=== PATIENT | female | born 1990 | race Caucasian/White ===

== ENCOUNTER → 2016-08-23 | Outpatient (CLI) | payer BC | END | disposition home or self-care (01) | LOC: MW.CHOBGYN 15:20 | PROVIDERS: ATTEND Advanced Practice Midwife | DX: O10.919 Unspecified pre-existing hypertension complicating pregnancy, unspecified trimester (principal); Z3A.00 Weeks of gestation of pregnancy not specified | CPT/HCPCS: 36415; 80305; 81003; 82570; 84156; 86592; 86762; 86803; 86850; 86900; 86901; 87086; 87340; 87389 ==

== ENCOUNTER 2016-09-13 13:24 | Outpatient (CLI) | payer BC | END 2016-09-13 13:52 | disposition home or self-care (01) | LOC: MW.OBCHECK 13:24 → MW.OB 13:28 → MW.OBCHECK 13:52 | PROVIDERS: ATTEND Obstetrics & Gynecology | DX: O47.03 False labor before 37 completed weeks of gestation, third trimester (principal); Z3A.33 33 weeks gestation of pregnancy | CPT/HCPCS: 59025 ==

== ENCOUNTER 2016-09-20 13:32 | Outpatient (CLI) | payer BC | END 2016-09-20 13:46 | disposition home or self-care (01) | LOC: MW.OBCHECK 13:32 → MW.OB 13:33 → MW.OBCHECK 13:46 | PROVIDERS: ATTEND Obstetrics & Gynecology | DX: Z36 Encounter for antenatal screening of mother (principal) | CPT/HCPCS: 59025 ==

== ENCOUNTER → 2016-09-23 | Outpatient (CLI) | payer BC | END | disposition home or self-care (01) | LOC: MW.CHOBGYN 14:18 | PROVIDERS: ATTEND Advanced Practice Midwife | DX: Z34.90 Encounter for supervision of normal pregnancy, unspecified, unspecified trimester (principal) | CPT/HCPCS: 87081 ==

== ENCOUNTER 2016-09-27 13:06 | Outpatient (CLI) | payer BC | END 2016-09-27 14:10 | disposition home or self-care (01) | LOC: MW.OBCHECK 13:06 | PROVIDERS: ATTEND Obstetrics & Gynecology | DX: Z34.93 Encounter for supervision of normal pregnancy, unspecified, third trimester (principal) | CPT/HCPCS: 59025 ==

== ENCOUNTER 2016-10-04 13:34 | Outpatient (CLI) | payer BC | END 2016-10-04 13:50 | disposition home or self-care (01) | LOC: MW.OBCHECK 13:34 → MW.OB 13:36 → MW.OBCHECK 13:50 | PROVIDERS: ATTEND Obstetrics & Gynecology | DX: O16.3 Unspecified maternal hypertension, third trimester (principal); O47.03 False labor before 37 completed weeks of gestation, third trimester; Z3A.36 36 weeks gestation of pregnancy | CPT/HCPCS: 59025 ==

== ENCOUNTER 2016-10-11 13:01 | Outpatient (CLI) | payer BC | END 2016-10-11 14:30 | disposition home or self-care (01) | LOC: MW.OBCHECK 13:01 → MW.OB 13:02 → MW.OBCHECK 14:30 | PROVIDERS: ATTEND Advanced Practice Midwife | DX: Z34.93 Encounter for supervision of normal pregnancy, unspecified, third trimester (principal) | CPT/HCPCS: 59025 ==

== ENCOUNTER 2016-10-17 10:48 | Outpatient (CLI) | payer BC | END 2016-10-17 12:10 | disposition home or self-care (01) | LOC: MW.OBCHECK 10:48 → MW.OB 10:49 → MW.OBCHECK 12:10 | PROVIDERS: ATTEND Obstetrics & Gynecology | DX: O47.03 False labor before 37 completed weeks of gestation, third trimester (principal) | CPT/HCPCS: 59025 ==

== ENCOUNTER 2016-10-17 23:23 | Inpatient (IN) | payer BC ==
[2016-10-18] MEDS ORDERED: Lidocaine 1% 50 ML MDV INJECT PRN (01:10)
[2016-10-18] MEDS ORDERED: Nalbuphine 10 MG/1 ML Vial IVPUSH PRN (01:10)
[2016-10-18] MEDS ORDERED: Water For Irrigation,Sterile 1,000 ML Container IRR PRN (01:10)
[2016-10-18] MEDS ORDERED: Methylergonovine 0.2 MG/1 ML Amp IM PRN (01:10)
[2016-10-18] MEDS ORDERED: Butorphanol 1 MG/ML SDV IVPUSH PRN (01:10)
[2016-10-18] MEDS ORDERED: Sodium Chloride 0.9% 2.5 ML Syringe FLUSH PRN (01:10)
[2016-10-18] MEDS ORDERED: Misoprostol 200 MCG Tab PO PRN (01:10)
[2016-10-18] MEDS ORDERED: Sodium Chloride 0.9% 10 ML Syringe FLUSH PRN (01:10)
[2016-10-18] MEDS ORDERED: Carboprost Tromethamine 250 MCG/1 ML Amp IM PRN (01:10)
[2016-10-18] MEDS ORDERED: Lactated Ringers 1,000 ML IV SCH (01:15)
[2016-10-18] MEDS ORDERED: Oxytocin/Lactated Ringers 30 UNIT/500 ML BAG IV SCH (01:15)
--- NOTE | 2016-10-18 02:51 | PCM.LDHP ---
L&D History of Present Illness - General Date of Service: 10/18/16 Admit Problem/Dx: Patient Status Order with Admit Dx/Problem 10/17/16 23:25 Patient Status [ADT] Routine 10/18/16 01:06 Patient Status [ADT] Routine Admission Diagnosis/Problem Admission Diagnosis/Problem - planned 10/18/16 02:46 26yo EDC 10/21/2016 39 5/7wks. O+,RI, GBS neg. Has Chronic HTN. Comes today in labor. Source of Information: Patient History Limitations: Reports: No Limitations - History of Present Illness Improves with: Reports: None Worsens with: Reports: None Associated Symptoms: Reports: N - Related Data Allergies/Adverse Reactions: Allergies Allergy/AdvReac Type Severity Reaction Status Date / Time No Known Allergies Allergy Verified 09/08/16 13:39 Home Medications: Home Meds Labetalol HCl [Labetalol] 100 mg PO BID 09/08/16 [History] Vits #90/Iron Fum/FA [ Formula] 1 each PO DAILY 09/08/16 [ History] H&P Review of Systems - Review of Systems: Review Of Systems: ROS reveals no pertinent complaints other than HPI. General: Reports: No Symptoms HEENT: Reports: No Symptoms Pulmonary: Reports: No Symptoms Cardiovascular: Reports: No Symptoms Gastrointestinal: Reports: No Symptoms Genitourinary: Reports: No Symptoms Musculoskeletal: Reports: No Symptoms Skin: Reports: No Symptoms Psychiatric: Reports: No Symptoms Neurological: Reports: No Symptoms Hematologic/Lymphatic: Reports: No Symptoms Immunologic: Reports: No Symptoms L&D Exam - Exam Exam: See Below - Vital Signs Weight: 101.605 kg - Exam General: Alert, Oriented, Cooperative HEENT: Hearing Intact Lungs: Normal Respiratory Effort Abdomen: Soft (gravid) Rectal Exam: Deferred Genitourinary: Normal bimanual exam, Cervical dilitation Back Exam: Full Range of Motion Extremities: Normal Inspection Skin: Warm, Dry, Intact Neurological: Cranial Nerves Intact Psychiatric: Alert, Normal Affect, Normal Mood - Patient Data Lab Results last 24 hrs: Laboratory Results - last 24 hr 10/18/16 10/18/16 Range/Units 01:30 01:30 WBC 15.63 H (4.0-11.0) K/uL RBC 4.54 (4.30-5.90) M/uL Hgb 13.9 (12.0-16.0) g/dL Hct 39.7 (36.0-46.0) % MCV 87.4 (80.0-98.0) fL MCH 30.6 (27.0-32.0) pg MCHC 35.0 (31.0-37.0) g/dL RDW Std Deviation 43.8 (28.0-62.0) fl RDW Coeff of Angela 14 (11.0-15.0) % Plt Count 268 (150-400) K/uL MPV 8.70 (7.40-12.00) fL Nucleated RBC % 0.0 /100WBC Nucleated RBCs # 0 K/uL Blood Type O POSITIVE Antibody Screen NEGATIVE Result Diagrams: 10/18/16 01:30 - Problem List (1) Supervision of normal IUP (intrauterine ) in primigravida SNOMED Code(s): 95799121, 478730191, 757003049, 978076081 ICD Code: Z34.00 - ENCNTR FOR SUPRVSN OF NORMAL FIRST , UNSP TRIMESTER Status: Acute Priority: High Current Visit: Yes Qualifiers: Trimester: third trimester Qualified Code(s): Z34.03 - Encounter for supervision of normal first , third trimester (2) Chronic benign essential hypertension in third trimester SNOMED Code(s): 44075278, 05191755, 73828866 ICD Code: O10.013 - PRE-EXISTING ESSENTIAL HTN COMP , THIRD TRIMESTER Status: Acute Priority: High Current Visit: Yes (3) (normal spontaneous vaginal delivery) SNOMED Code(s): 57866646 ICD Code: O80 - ENCOUNTER FOR FULL-TERM UNCOMPLICATED DELIVERY Status: Acute Priority: Medium Current Visit: Yes Problem List Initiated/Reviewed/Updated: Yes Orders Last 24hrs: Active Orders 24 hr Category Date Time Status Patient Status [ADT] Routine ADT 10/18/16 01:06 Active May Shower [RC] ASDIRECTED Care 10/18/16 01:10 Active Notify Provider [RC] PRN Care 10/18/16 01:10 Active Up ad Paige [RC] ASDIRECTED Care 10/17/16 23:25 Active Vital Signs [RC] PER UNIT ROUTINE Care 10/17/16 23:25 Active Butorphanol [Stadol] Med 10/18/16 01:10 Active 1 mg IVPUSH Q1H PRN Carboprost Tromethamine [Hemabate DS] Med 10/18/16 01:10 Active 250 mcg IM ASDIRECTED PRN Lactated Ringers [Ringers, Lactated] 1,000 ml Med 10/18/16 01:15 Active IV ASDIRECTED Lidocaine 1% [Xylocaine 1%] Med 10/18/16 01:10 Active 50 ml INJECT .ONCE PRN Methylergonovine [Methergine] Med 10/18/16 01:10 Active 0.2 mg IM ASDIRECTED PRN Misoprostol [Cytotec] Med 10/18/16 01:10 Active 200 mcg PO .ONCE PRN Nalbuphine [Nubain] Med 10/18/16 01:10 Active 10 mg IVPUSH Q1H PRN Sodium Chloride 0.9% [Saline Flush] Med 10/18/16 01:10 Active 10 ml FLUSH ASDIRECTED PRN Sodium Chloride 0.9% [Saline Flush] Med 10/18/16 01:10 Active 2.5 ml FLUSH ASDIRECTED PRN Water For Irrigation,Sterile [Sterile Water for Med 10/18/16 01:10 Active Irrigation] 1,000 ml IRR ASDIRECTED PRN Scalp Electrode [WOMSER] Per Unit Routine Oth 10/18/16 01:10 Ordered Peripheral IV Insertion Adult [OM.PC] Routine Oth 10/18/16 01:10 Ordered Resuscitation Status Routine Resus Stat 10/17/16 23:25 Ordered Medication Orders Butorphanol Tartrate (Stadol) 1 mg IVPUSH Q1H PRN PRN Reason: Pain Carboprost Tromethamine (Hemabate Ds) 250 mcg IM ASDIRECTED PRN PRN Reason: Post Hemorrhage Lactated Ringer's (Ringers, Lactated) 1,000 mls @ 150 mls/hr IV ASDIRECTED GENTRY Last Admin: 10/18/16 01:30 Dose: 500 mls/hr Lidocaine HCl (Xylocaine 1%) 50 ml INJECT .ONCE PRN PRN Reason: Laceration repair Last Admin: 10/18/16 02:18 Dose: 50 ml Methylergonovine Maleate (Methergine) 0.2 mg IM ASDIRECTED PRN PRN Reason: Post Hemorrhage Misoprostol (Cytotec) 200 mcg PO .ONCE PRN PRN Reason: Post Hemorrhage Nalbuphine HCl (Nubain) 10 mg IVPUSH Q1H PRN PRN Reason: Pain (severe 7-10) Stop: 10/18/16 03:11 Sodium Chloride (Saline Flush) 10 ml FLUSH ASDIRECTED PRN PRN Reason: Keep Vein Open Sodium Chloride (Saline Flush) 2.5 ml FLUSH ASDIRECTED PRN PRN Reason: Keep Vein Open Sterile Water (Sterile Water For Irrigation) 1,000 ml IRR ASDIRECTED PRN PRN Reason: delivery Assessment/Plan Comment:: Labor: A: 26yo EDC 10/21/2016 39 5/7wks. O+,RI, GBS neg. Has Chronic HTN. Comes today in labor. P: Admit. Delivery Delivered: A: of viable female. 1st degee succal lac with repair, EBL 100cc, APGARS 8/ 9, Wt: pending P: Routine pp plan of care.
--- NOTE | 2016-10-18 02:58 | PCM.DEL ---
L & D Note - General Info Date of Service: 10/18/16 Mother's Due Date: 10/21/16 - Delivery Note Labor: spontaneous Delivery Outcome: Livebirth Infant Delivery Method: Spontaneous Vaginal Delivery Infant Delivery Mode: Spontaneous Presentation: Vertex Nuchal cord: none Anesthesia Type: None Anesthetic: lidocaine (xylocaine) 1% plain Local anesthetic volume: 1cc Amniotic Fluid Description: Clear Episiotomy Type: None Laceration: sulcus Suture type: vicryl Suture size: 3-0 Placenta: intact, spontaneous Cord: 3 vessels Estimated blood loss: 100 Score 1 min: 8 Score 5 min: 9 Second Stage Interventions: Reports: Pushing Effectively Delivery Comments (Free Text/Narrative):: over intact perineum. Head delivered with great pushing, shoulder and body followed. Spont cry. to mothers abd with RN at for evaluation. Delayed cord clamping, pitocin to IVF, cord clamped after 3 min and cut by FOB, Placenta spont delivered grossly intact. Inspection noted 1st degree sulcus lac , repaired with 3-0 wing. EBL 100cc, APGARS 8/9, Wt: pending bonding. Mother and baby left in stable condition for bonding. - General Info Date of Service: 10/18/16 Admission Dx/Problem (Free Text): Patient Status Order with Admit Dx/Problem 10/17/16 23:25 Patient Status [ADT] Routine 10/18/16 01:06 Patient Status [ADT] Routine Admission Diagnosis/Problem Admission Diagnosis/Problem - planned 10/18/16 02:46 26yo EDC 10/21/2016 39 5/7wks. O+,RI, GBS neg. Has Chronic HTN. Comes today in labor. Functional Status: Reports: pain controlled, tolerating diet - Review of Systems General: Reports: No Symptoms HEENT: Reports: no symptoms Pulmonary: Reports: no symptoms Cardiovascular: Reports: No Symptoms Gastrointestinal: Reports: No symptoms Genitourinary: Reports: no symptoms Musculoskeletal: Reports: no symptoms Skin: Reports: no symptoms Neurological: Reports: No Symptoms Psychiatric: Reports: no symptoms - Patient Data Weight - most recent: 101.605 kg Lab Results last 24 hrs: Laboratory Results - last 24 hr 10/18/16 10/18/16 Range/Units 01:30 01:30 WBC 15.63 H (4.0-11.0) K/uL RBC 4.54 (4.30-5.90) M/uL Hgb 13.9 (12.0-16.0) g/dL Hct 39.7 (36.0-46.0) % MCV 87.4 (80.0-98.0) fL MCH 30.6 (27.0-32.0) pg MCHC 35.0 (31.0-37.0) g/dL RDW Std Deviation 43.8 (28.0-62.0) fl RDW Coeff of Angela 14 (11.0-15.0) % Plt Count 268 (150-400) K/uL MPV 8.70 (7.40-12.00) fL Nucleated RBC % 0.0 /100WBC Nucleated RBCs # 0 K/uL Blood Type O POSITIVE Antibody Screen NEGATIVE Med Orders - Current: Current Medications Butorphanol Tartrate (Stadol) 1 mg IVPUSH Q1H PRN PRN Reason: Pain Carboprost Tromethamine (Hemabate Ds) 250 mcg IM ASDIRECTED PRN PRN Reason: Post Hemorrhage Lactated Ringer's (Ringers, Lactated) 1,000 mls @ 150 mls/hr IV ASDIRECTED GENTRY Last Admin: 10/18/16 01:30 Dose: 500 mls/hr Lidocaine HCl (Xylocaine 1%) 50 ml INJECT .ONCE PRN PRN Reason: Laceration repair Last Admin: 10/18/16 02:18 Dose: 50 ml Methylergonovine Maleate (Methergine) 0.2 mg IM ASDIRECTED PRN PRN Reason: Post Hemorrhage Misoprostol (Cytotec) 200 mcg PO .ONCE PRN PRN Reason: Post Hemorrhage Nalbuphine HCl (Nubain) 10 mg IVPUSH Q1H PRN PRN Reason: Pain (severe 7-10) Stop: 10/18/16 03:11 Sodium Chloride (Saline Flush) 10 ml FLUSH ASDIRECTED PRN PRN Reason: Keep Vein Open Sodium Chloride (Saline Flush) 2.5 ml FLUSH ASDIRECTED PRN PRN Reason: Keep Vein Open Sterile Water (Sterile Water For Irrigation) 1,000 ml IRR ASDIRECTED PRN PRN Reason: delivery Discontinued Medications Oxytocin/Lactated Ringer's (Pitocin In Lr 30 Units/500 Ml) 30 unit in 500 mls @ 999 mls/hr IV TITRATE GENTRY; 999 MUNITS/MIN PRN Reason: Protocol Stop: 10/18/16 01:46 Last Admin: 10/18/16 02:08 Dose: 999 munits/min, 999 mls/hr - Exam General: alert, cooperative, no acute distress Lungs: Normal respiratory effort (Female) Exam: Normal External Exam, Normal Bimanual Exam, Vaginal Bleeding Back Exam: Normal Inspection Extremities: no edema Skin: warm, dry, intact Wound/Incisions: healing well Neurological: no new focal deficit Psy/Mental Status: alert, normal affect, normal mood - Problem List & Annotations (1) Supervision of normal IUP (intrauterine ) in primigravida SNOMED Code(s): 03902020, 788399440, 547503962, 479187567 Code(s): Z34.00 - ENCNTR FOR SUPRVSN OF NORMAL FIRST , UNSP TRIMESTER Status: Acute Priority: High Current Visit: Yes Qualifiers: Trimester: third trimester Qualified Code(s): Z34.03 - Encounter for supervision of normal first , third trimester (2) Chronic benign essential hypertension in third trimester SNOMED Code(s): 98928630, 96924888, 08744585 Code(s): O10.013 - PRE-EXISTING ESSENTIAL HTN COMP , THIRD TRIMESTER Status: Acute Priority: High Current Visit: Yes (3) (normal spontaneous vaginal delivery) SNOMED Code(s): 12957510 Code(s): O80 - ENCOUNTER FOR FULL-TERM UNCOMPLICATED DELIVERY Status: Acute Priority: Medium Current Visit: Yes - Problem List Review Problem List Initiated/Reviewed/Updated: Yes - My Orders Last 24 Hours: My Active Orders 10/17/16 23:25 Up ad Paige [RC] ASDIRECTED Vital Signs [RC] PER UNIT ROUTINE Resuscitation Status Routine 10/18/16 01:06 Patient Status [ADT] Routine 10/18/16 01:10 May Shower [RC] ASDIRECTED Notify Provider [RC] PRN Butorphanol [Stadol] 1 mg IVPUSH Q1H PRN Carboprost Tromethamine [Hemabate DS] 250 mcg IM ASDIRECTED PRN Lidocaine 1% [Xylocaine 1%] 50 ml INJECT .ONCE PRN Methylergonovine [Methergine] 0.2 mg IM ASDIRECTED PRN Misoprostol [Cytotec] 200 mcg PO .ONCE PRN Nalbuphine [Nubain] 10 mg IVPUSH Q1H PRN Sodium Chloride 0.9% [Saline Flush] 10 ml FLUSH ASDIRECTED PRN Sodium Chloride 0.9% [Saline Flush] 2.5 ml FLUSH ASDIRECTED PRN Water For Irrigation,Sterile [Sterile Water for Irrigation] 1,000 ml IRR ASDIRECTED PRN Scalp Electrode [WOMSER] Per Unit Routine Peripheral IV Insertion Adult [OM.PC] Routine 10/18/16 01:15 Lactated Ringers [Ringers, Lactated] 1,000 ml IV ASDIRECTED - Plan Plan:: Labor: A: 26yo EDC 10/21/2016 39 5/7wks. O+,RI, GBS neg. Has Chronic HTN. Comes today in labor. P: Admit. Delivery Delivered: A: of viable female. 1st degee succal lac with repair, EBL 100cc, APGARS 8/ 9, Wt: pending P: Routine pp plan of care.
[2016-10-18] MEDS ORDERED: Benzocaine/Menthol 20%-0.5% Spray 78 GM Cannister TOP PRN (03:06)
[2016-10-18] MEDS ORDERED: Bisacodyl 10 MG Supp RECTAL PRN (03:06)
[2016-10-18] MEDS ORDERED: Witch Hazel Medicated Pads 40/Jar TOP PRN (03:06)
[2016-10-18] MEDS ORDERED: Acetaminophen 500 MG Tab PO PRN ×2 (03:06)
[2016-10-18] MEDS ORDERED: Ibuprofen 800 MG Tab PO PRN (03:06)
[2016-10-18] MEDS ORDERED: oxyCODONE 5 MG Tab PO PRN (03:06)
[2016-10-18] MEDS ORDERED: Docusate Sodium 100 MG Cap PO PRN (03:06)
[2016-10-18] MEDS ORDERED: Lanolin 100% Cream 7 GM Tube TOP PRN (03:06)
[2016-10-18] MEDS ORDERED: Ibuprofen 400 MG Tab PO PRN (03:06)
[2016-10-19 09:33] VITALS: BP 128/69
--- NOTE | 2016-10-19 09:48 | PCM.DCSUM1 ---
Discharge Summary - Hospital Course Free Text/Narrative:: Discharge home with . Follow up in 3 weeks for BP check and 6 weeks for post visit - Discharge Data Discharge Date: 10/19/16 Discharge Disposition: Home, Self-Care 01 Condition: Good - Discharge Diagnosis/Problem(s) (1) Supervision of normal IUP (intrauterine ) in primigravida SNOMED Code(s): 99987428, 740723720, 498366914, 965131445 ICD Code: Z34.00 - ENCNTR FOR SUPRVSN OF NORMAL FIRST , UNSP TRIMESTER Status: Acute Priority: High Current Visit: Yes Qualifiers: Trimester: third trimester Qualified Code(s): Z34.03 - Encounter for supervision of normal first , third trimester (2) Chronic benign essential hypertension in third trimester SNOMED Code(s): 37700096, 35556168, 43959112 ICD Code: O10.013 - PRE-EXISTING ESSENTIAL HTN COMP , THIRD TRIMESTER Status: Acute Priority: High Current Visit: Yes (3) (normal spontaneous vaginal delivery) SNOMED Code(s): 95598555 ICD Code: O80 - ENCOUNTER FOR FULL-TERM UNCOMPLICATED DELIVERY Status: Acute Priority: Medium Current Visit: Yes - Patient Instructions Diet: Usual Diet as Tolerated Activity: As Tolerated, Rest and Relax Today Driving: Do Not Drive (for a few days) Showering/Bathing: May Shower Notify Provider of: Fever, Increased Pain, Swelling and Redness, Nausea and/or Vomiting Other/Special Instructions: Discharge home with . Follow up in 3 weeks for BP check and 6 weeks for post visit - Discharge Plan Home Medications: Home Meds Labetalol HCl [Labetalol] 100 mg PO BID 09/08/16 [History] Vits #90/Iron Fum/FA [ Formula] 1 each PO DAILY 09/08/16 [ History] Referrals: Karen Lopez MD [Physician] - 10/28/16 1:00 pm - General Info Date of Service: 10/19/16 Admission Dx/Problem (Free Text: Patient Status Order with Admit Dx/Problem 10/17/16 23:25 Patient Status [ADT] Routine 10/18/16 01:06 Patient Status [ADT] Routine Admission Diagnosis/Problem Admission Diagnosis/Problem - planned 10/18/16 02:46 26yo EDC 10/21/2016 39 5/7wks. O+,RI, GBS neg. Has Chronic HTN. Comes today in labor. Functional Status: Reports: pain controlled, tolerating diet, ambulating, urinating - Review of Systems General: Reports: No Symptoms HEENT: Reports: no symptoms Pulmonary: Reports: no symptoms Cardiovascular: Reports: No Symptoms Gastrointestinal: Reports: No symptoms Genitourinary: Reports: no symptoms Musculoskeletal: Reports: no symptoms Skin: Reports: no symptoms Neurological: Reports: No Symptoms Psychiatric: Reports: no symptoms - Patient Data Vitals - Most Recent: Last Vital Signs Temp 36.2 C 10/19/16 09:00 Pulse 92 10/19/16 09:00 Resp 18 10/19/16 09:00 BP 128/69 10/19/16 09:00 Pulse Ox 97 10/19/16 09:00 Weight - Most Recent: 101.605 kg Med Orders - Current: Current Medications Acetaminophen (Tylenol Extra Strength) 500 mg PO Q4H PRN PRN Reason: Pain Acetaminophen (Tylenol Extra Strength) 1,000 mg PO Q4H PRN PRN Reason: Pain Benzocaine/Menthol (Dermoplast Pain Relief 20%-0.5% Grayson) 78 gm TOP ASDIRECTED PRN PRN Reason: Perineal Comfort Measure Last Admin: 10/18/16 04:08 Dose: 78 gm Bisacodyl (Dulcolax) 10 mg RECTAL .ONCE PRN PRN Reason: Constipation Docusate Sodium (Colace) 100 mg PO BID PRN PRN Reason: Constipation Last Admin: 10/18/16 20:44 Dose: 100 mg Emollient Ointment (Lansinoh Hpa) 0 gm TOP ASDIRECTED PRN PRN Reason: Sore Nipples Ibuprofen (Motrin) 400 mg PO Q4H PRN PRN Reason: Pain Ibuprofen (Motrin) 800 mg PO Q6H PRN PRN Reason: Pain Oxycodone HCl (Oxycodone) 5 mg PO Q2H PRN PRN Reason: Pain Witch Theresa (Tucks) 1 pad TOP ASDIRECTED PRN PRN Reason: comfort care Last Admin: 10/18/16 04:08 Dose: 1 pad Discontinued Medications Butorphanol Tartrate (Stadol) 1 mg IVPUSH Q1H PRN PRN Reason: Pain Carboprost Tromethamine (Hemabate Ds) 250 mcg IM ASDIRECTED PRN PRN Reason: Post Hemorrhage Lactated Ringer's (Ringers, Lactated) 1,000 mls @ 150 mls/hr IV ASDIRECTED GENTRY Last Admin: 10/18/16 01:30 Dose: 500 mls/hr Oxytocin/Lactated Ringer's (Pitocin In Lr 30 Units/500 Ml) 30 unit in 500 mls @ 999 mls/hr IV TITRATE GENTRY; 999 MUNITS/MIN PRN Reason: Protocol Stop: 10/18/16 01:46 Last Admin: 10/18/16 02:08 Dose: 999 munits/min, 999 mls/hr Lidocaine HCl (Xylocaine 1%) 50 ml INJECT .ONCE PRN PRN Reason: Laceration repair Last Admin: 10/18/16 02:18 Dose: 50 ml Methylergonovine Maleate (Methergine) 0.2 mg IM ASDIRECTED PRN PRN Reason: Post Hemorrhage Misoprostol (Cytotec) 200 mcg PO .ONCE PRN PRN Reason: Post Hemorrhage Nalbuphine HCl (Nubain) 10 mg IVPUSH Q1H PRN PRN Reason: Pain (severe 7-10) Stop: 10/18/16 03:11 Sodium Chloride (Saline Flush) 10 ml FLUSH ASDIRECTED PRN PRN Reason: Keep Vein Open Sodium Chloride (Saline Flush) 2.5 ml FLUSH ASDIRECTED PRN PRN Reason: Keep Vein Open Sterile Water (Sterile Water For Irrigation) 1,000 ml IRR ASDIRECTED PRN PRN Reason: delivery Last Admin: 10/18/16 02:00 Dose: 1,000 ml - Exam General: Reports: alert, oriented, cooperative, no acute distress Lungs: Reports: Normal respiratory effort (Female) Exam: Vaginal Bleeding Rectal (Female) Exam: Deferred Back Exam: Reports: Full Range of Motion Extremities: Reports: no edema, normal pulses Skin: Reports: warm, dry, intact Wound/Incisions: Reports: healing well Neurological: Reports: no new focal deficit Psy/Mental Status: Reports: alert, normal affect, normal mood *Q Meaningful Use (DIS) - VTE *Q VTE Criteria *Q: - Stroke *Q Stroke Criteria *Q: - AMI *Q AMI Criteria *Q:
== END 2016-10-19 11:45 | disposition home or self-care (01) | DRG 560 ==
LOC: MW.OBCHECK 23:23 → MW.OB 23:24 → MW.OBCHECK 10-18 01:10 → MW.OB 10-18 01:10 → OBSVTOIN 10-18 02:07 → MW.OB 10-18 04:25
PROVIDERS: ADMIT Obstetrics & Gynecology; ATTEND Obstetrics & Gynecology
PROC: 10E0XZZ Delivery of Products of Conception, External Approach (ICD-10-PCS; principal; 2016-10-18)
PROC: 0UQGXZZ Repair Vagina, External Approach (ICD-10-PCS; 2016-10-18)
DX: O10.02 Pre-existing essential hypertension complicating childbirth (principal); Z3A.40 40 weeks gestation of pregnancy; Z37.0 Single live birth; Z79.899 Other long term (current) drug therapy; O71.4 Obstetric high vaginal laceration alone
CPT/HCPCS: 59025; 85027; 86850; 86900; 86901; A9270-GY; J7120